=== PATIENT | female | born 1985 | race Hispanic/Latino ===

== ENCOUNTER 2024-06-17 20:27 | Inpatient (IN) | payer SELFPAY ==
[~2024-06-17] VITALS: Ht 167.6 cm; Wt 89.4 kg
[2024-06-17 20:53] LABS: BASOPHILS # (AUTO) 0.04 K/uL (0.00-0.20); BASOPHILS % (AUTO) 0.3 % (0.0-5.0); EOSINOPHILS # (AUTO) 0.02 K/uL (0.00-0.70); EOSINOPHILS % (AUTO) 0.1 % (0.0-8.0); HEMATOCRIT 24.1 % (36-48); IMMATURE GRANULOCYTE ABSOLUTE 0.57 K/uL (0-1); LYMPHOCYTES # (AUTO) 1.9 K/uL (1.0-4.8); LYMPHOCYTES % (AUTO) 13.2 % (21.0-51.0); MEAN CORPUSCULAR HEMOGLOBIN 30.2 pg (27.0-33.0); MEAN CORPUSCULAR HGB CONC 33.2 g/dL (32.0-36.0); MEAN CORPUSCULAR VOLUME 90.9 fL (79-99); MONOCYTES # (AUTO) 0.8 K/uL (0.1-1.0); MONOCYTES % (AUTO) 5.4 % (3.0-13.0); NEUTROPHILS # (AUTO) 11.3 K/uL (1.8-7.7); NEUTROPHILS % (AUTO) 77.1 % (40.0-77.0); NUCLEATED RED BLOOD CELLS 0.6 % (0.0-0.19); PLATELET COUNT (AUTO) 343 K/uL (130-400); RED BLOOD CELL COUNT(AUTO) 2.65 MIL/uL (4.00-5.50); RED CELL DISTRIBUTION WIDTH 13.8 % (11.0-15.5); WHITE BLOOD COUNT (AUTO) 14.7 K/uL (4.8-10.8)
[2024-06-17 21:05] LABS: CREATININE 0.7 mg/dL (0.5-1.0); POTASSIUM 3.7 mmol/L (3.5-5.1)
[2024-06-17 21:09] LABS: ALBUMIN 2.5 g/dL (3.5-5.0); BILIRUBIN,TOTAL 0.6 mg/dL (0.2-1.0); TOTAL PROTEIN, SERUM 6.2 g/dL (6.0-8.3)
[2024-06-17] MEDS: 0.9%NACL 1000ML 1,000 ML IV ONE (21:12)
[2024-06-17] MEDS ORDERED: IOHEXOL-350 75 ML VIAL IV ONE (21:21)
--- NOTE | 2024-06-17 22:01 | HMCIMG ---
CT ABDOMEN/PELVIS W/CONTRAST HISTORY: Abdominal pain TECHNIQUE: CT ABDOMEN/PELVIS W/CONTRAST Omnipaque contrast was used. Oral contrast was not given. Coronal and sagittal reformats were obtained. CT was performed with one or more of the following dose reduction techniques: Automated exposure control, adjustment of the mA and/or kV according to the patient's size, or use of the iterative reconstruction technique. Comparison: None. FINDINGS: Mild atelectatic changes are seen in the lung bases. Liver and gallbladder are within normal limits. The spleen, pancreas, and adrenal glands are within normal limits. No hydronephrosis. The urinary bladder is partially distended. Reproductive organs are grossly within normal limits for patient's age. Prominent loops of small bowel and colon with air-fluid level which may may represent ileus, enterocolitis versus early obstruction. Correlate clinically. There is no CT evidence of acute appendicitis. Subcutaneous stranding and multiple foci of air seen in the abdominal/pelvic wall as well as flank which may may represent recent postoperative changes versus gas-forming infection. Correlate clinically. Visualized aorta is normal in caliber. No acute osseous findings. IMPRESSION: 1. Prominent loops of small bowel and colon with air-fluid level which may may represent ileus, enterocolitis, less likely early obstruction. Correlate clinically. There is no CT evidence of acute appendicitis. 2. Subcutaneous stranding and multiple foci of air seen in the abdominal/pelvic wall as well as flank which may may represent recent postoperative changes versus gas-forming infection. Correlate clinically.
[2024-06-17] MEDS: ondanSETRON 4MG INJ IVP ONE (22:30)
[2024-06-17] MEDS: morPHINE 2 MG SYG IVP ONE (22:41)
--- NOTE | 2024-06-18 00:51 | ERN ---
General Chief Complaint: Abdominal Pain Stated Complaint: C/O ABD PAIN W/ N X V; STATES HAD LIPO & TUMMY TU Time Seen by MD: 20:31 Time Seen by Midlevel: 20:31 Source: patient History of Present Illness Initial Comments 39-year-old female who presents to the ED due to abdominal pain. Patient reports nausea, vomiting, constipation but denies any fever or further associated symptoms. Patient reports she had a Liposuction and tummy tuck done three days ago by Dr. Gonsales. Patient reports last bowel movement was Saturday prior to the surgery. States she has not been able to eat or drink anything due to the nausea and vomiting. Patient has attempted to take the ibuprofen at home but unable to tolerated. Denies any significant past medical history. Allergies: Coded Allergies: No Known Allergies (Unverified Allergy, Unknown, 06/17/24) Past Medical History Past Medical History: No Pertinent History Past Surgical History: Other Surgical History Other: LIPO SUCTION AND TUMMY TUCK Female( History) LMP: Jun 03, 2024 ROS Dictation Constitutional: Negative for fever,chills, and weight loss Eyes: Negative for injury, pain,redness, and discharge ENT: Negative for injury,pain or swelling Cardiovascular: Negative for chest pain, palpitations, and edema Respiratory: Negative for shortness of breath, cough, and wheezing, Abdomen/GI: Positive for abdominal pain, nausea, vomiting, constipation Negative for diarrhea Back: Negative for injury and pain : Negative for painful urination, bleeding or discharge MS/Extremity: Negative for injury and deformity Skin: Negative for rash, and discoloration Neuro: Negative for headache, weakness, numbness, tingling, and seizure Psych: Negative for suicide ideation, homicidal ideation, and hallucinations Physical Exam Physical Exam Dictation General: awake, alert, no acute distress Head/Face: Normocephalic, atraumatic Eyes: normal conjunctiva ENT: oral mucosa moist Neck: Normal range of motion, supple Cardiovascular: RRR, normal S1/S2 Abdomen: Soft, generalized tenderness, non-distended, surgical incision shows no signs of infection Skin: Warm, dry, normal turgor, no rash MS/Extremity: Pulses equal, no cyanosis, neurovascular intact, FROM Neuro: COAx4, GCS 15, no neurological deficits Psych: Normal behavior, mood, and affect normal Results Laboratory and Microbiology Lab and Micro Result Labs Reviewed?: Yes EKG/XRAY/US/CT/MRI CT Scan Comment REASON: Abdominal pain ORDERING PHYSICIAN: HARDEEP ALSTON PROCEDURE: ABD PEL W - CT ABDOMEN/PELVIS W/CONTRAST CT ABDOMEN/PELVIS W/CONTRAST HISTORY: Abdominal pain TECHNIQUE: CT ABDOMEN/PELVIS W/CONTRAST Omnipaque contrast was used. Oral contrast was not given. Coronal and sagittal reformats were obtained. CT was performed with one or more of the following dose reduction techniques: Automated exposure control, adjustment of the mA and/or kV according to the patient's size, or use of the iterative reconstruction technique. Comparison: None. FINDINGS: Mild atelectatic changes are seen in the lung bases. Liver and gallbladder are within normal limits. The spleen, pancreas, and adrenal glands are within normal limits. No hydronephrosis. The urinary bladder is partially distended. Reproductive organs are grossly within normal limits for patient's age. Prominent loops of small bowel and colon with air-fluid level which may may represent ileus, enterocolitis versus early obstruction. Correlate clinically. There is no CT evidence of acute appendicitis. Subcutaneous stranding and multiple foci of air seen in the abdominal/pelvic wall as well as flank which may may represent recent postoperative changes versus gas-forming infection. Correlate clinically. Visualized aorta is normal in caliber. No acute osseous findings. IMPRESSION: 1. Prominent loops of small bowel and colon with air-fluid level which may may represent ileus, enterocolitis, less likely early obstruction. Correlate clinically. There is no CT evidence of acute appendicitis. 2. Subcutaneous stranding and multiple foci of air seen in the abdominal/pelvic wall as well as flank which may may represent recent postoperative changes versus gas-forming infection. Correlate clinically. MDM MDM: Differential diagnosis: Bowel obstruction, ileus, postoperative complication Rationale: 39-year-old female who presents to the ED due to abdominal pain. Patient reports nausea, vomiting, constipation but denies any fever or further associated symptoms. Patient reports she had a Liposuction and tummy tuck done three days ago by Dr. Gonsales. Patient reports last bowel movement was Saturday prior to the surgery. States she has not been able to eat or drink anything due to the nausea and vomiting. Patient has attempted to take the ibuprofen at home but unable to tolerated. Denies any significant past medical history. Labs obtained indicate dehydration, WBC elevation at 14.7, and anemia with hemoglobin of 8. CT abdomen and pelvis obtained indicates prominent small bowel loops and colon air-fluid filled ileus versus early obstruction. Patient was administered Zofran, and IV fluids. Case discussed at 10:46 p.m. with general surgeon Dr. Bell who recommended patient to be transferred to hospital where surgery was performed. At 11:43 p.m. case was discussed with Dr. Gonsales who performed the surgery who stated he would discuss case with general surgeon Dr. Bell due to surgery being performed at an outpatient facility. During discussi on with Dr. Gonsales he stated patient has a history of gastritis and was previously taking omeprazole prior to the surgery. Dr. Rascon stated to admit patient and he would evaluate. Case discussed with BRAND LEAD Alyssia who accepted admission. Previous outside records reviewed: Old ER visits. Risk of complication and/or morbidity or mortality of patient management: None Medications-Per medication reconciliation Need for hospitalization: Patient does meet criteria for hospitalization. Need for emergency major/minor surgery: No There are no social concerns with this patient. Prescription drug management Prescriptions will include symptomatic care Patient's prior external medical records from other ER visits were reviewed by me as indicated. Prior testing and results from previous visits were reviewed. Prior tests were taken into account with medical decision making and resource utilization, independent historian/historians were used to obtain complete medical history. I independently interpreted the test that were performed, results were reviewed by me and considered findings on radiology if ordered. Medical management and examination interpretation discussions were had by me with other qualified healthcare professionals as indicated for the patient's c are. ED Course Critical Care Note Critical Time: 30 minutes Comments Critical Care Procedure Note Authorized and Performed by: me Total critical care time: Approximately 36 minutes Due to a high probability of clinically significant, life threatening deterioration, the patient required my highest level of preparedness to intervene emergently and I personally spent this critical care time directly and personally managing the patient. This critical care time included obtaining a history; examining the patient; pulse oximetry; ordering and review of studies; arranging urgent treatment with development of a management plan; evaluation of patient's response to treatment; frequent reassessment; and, discussions with other providers. This critical care time was performed to assess and manage the high probability of imminent, life-threatening deterioration that could result in multi-organ failure. It was exclusive of separately billable procedures and treating other patients and teaching time. Please see MDM section and the rest of the note for further information on patient assessment and treatment. DX & DISP Disposition: Inpatient Departure Impression: Primary Impression: Dehydration Additional Impressions: Hyperemesis, Ileus, postoperative, Anemia Condition: Stable Referrals: SELF,REFERRAL (PCP) I participated in the following activities of this patient's care: For this patient encounter, I reviewed the PA or [facility] documentation, treatment plan, and medical decision making. I did not have [id number] time with this patient. I will sign as the reviewing Dr. And agree with the treatment plan and disposition. HARDEEP ALSTON Jun 18, 2024 00:51
[2024-06-18 00:54] LABS: HCG,QUALITATIVE URINE NEGATIVE (NEGATIVE)
[2024-06-18 01:08] LABS: APPEARANCE,URINE CLEAR (CLEAR); BILIRUBIN,URINE NEGATIVE (NEGATIVE); COLOR,URINE LIGHT-YELLOW (YELLOW); GLUCOSE, URINE (UA) NEGATIVE (NEGATIVE); KETONES,URINE >=80 mg/dL (NEGATIVE); LEUKOCYTE ESTERASE ,URINE NEGATIVE Leu/uL (NEGATIVE); NITRATE,URINE NEGATIVE (NEGATIVE); OCCULT BLOOD,URINE NEGATIVE (NEGATIVE); PROTEIN,URINE NEGATIVE (NEGATIVE); UROBILINOGEN,URINE 0.2 mg/dL (0.2-1.0)
[2024-06-18 01:09] LABS: ADD UA MICROSCOPIC YES
[2024-06-18 01:10] LABS: BACTERIA,URINE RARE /HPF (None Seen); MUCUS,URINE RARE LPF (None Seen); SQUAMOUS EPITHELIAL CELL,UR MOD /HPF (0-2)
--- NOTE | 2024-06-18 01:51 | HP ---
[facility] HISTORY AND PHYSICAL Date of Service: Jun 18, 2024 Time of Service: 01:51 PCP self-referral HISTORY OF PRESENT ILLNESS: This is a 39-year-old female with no pertinent medical history with surgical history of liposuction and tummy tuck who presents to the ED for complaints of abdominal pain, nausea and vomiting. Patient states he had a liposuction and tummy tuck done three days ago by Dr. Gonsales and he was discharged home last Saturday and was on ibuprofen and Tylenol for pain but according to patient she can not tolerate anything po . Patient states for the past three days she has not been able to eat because of the persistent nausea and vomiting. Patient states however she kept on burping a lot. Patient states she has no bowel movement for the past five days. Seen and examined patient in the ER awake alert and coherent appears uncomfortable need to complain of abdominal pain 8/10 pain level. Patient complained of chills, denies chest pain, palpitation, shortness for breath, diarrhea. Latest vital signs temperature 98.8, heart rate 106, blood pressure 118/69, saturation 98% on room air. Labs: WBC 14.7 with negative left shift of neutrophils 77, hemoglobin 8, hematocrit 24, platelet count 343. Sodium 135, potassium 3.7, chloride 99 glucose 155, total calcium 8.4, AST 38 ALT 30 alkaline phosphatase 53 albumin 2.5 lipase 24 serum negative. Urinalysis is remarkable with RBC and WBC. CT abdomen and pelvis with contrast result revealed prominent loops of small bowel and colon with air-fluid level which may represent ileus, enterocolitis, less likely early obstruction. Correlate clinically. There is no CT evidence of acute appendicitis. Subcutaneous stranding and multiple foci of air seen in the abdominal/pelvic wall as well as flank which may represent recent postoperative changes versus gas-forming infection. While in the ER patient received Dulcolax 10 mg suppository, morphine 2 mg IV, Zofran 4 mg IV 1 L NS bolus. As per ER PA case was discussed to both Dr. Gonsales and Dr. Rascon and Dr. Rascon as per report agreed to evaluate the patient. We will admit patient for further medical management. REVIEW OF SYSTEMS CONSTITUTIONAL: Complain of chills Denies fevers or night sweats. No unintentional weight loss reported. NEUROLOGICAL: Denies headache, amaurosis fugax, motor weakness, sensory deficit, vertigo/spinning sensation, gait abnormalities, or tremors. ENT: No hearing loss, otalgia, otorrhea, rhinitis, rhinorrhea, hoarseness, or sore throat. CARDIOVASCULAR: Denies any exertional angina, dyspnea on exertion, orthopnea, paroxysmal nocturnal dyspnea, palpitations, life-threatening arrhythmias, claudication. PULMONARY: Denies any shortness of breath, cough, phlegm/sputum, hemoptysis, pleuritic chest pain. SLEEP: Denies morning headaches, daytime somnolence or napping. Denies difficulty falling asleep, staying asleep, waking from sleep. Denies knowledge of snoring. GASTROINTESTINAL: Complained of abdominal pain associated with constipation, nausea and vomiting times 13 Denies any type of dysphagia to either liquids or solids. Denies pyrosis, early satiety, , diarrhea or changes in stool consistency or caliber. Denies coffee-ground emesis, hematemesis, hematochezia, or melanotic stools. GENITOURINARY: Denies frequency, urgency, nocturia, hematuria or incontinence (Storage/Irritative symptoms.) Low urinary stream, straining to void, urinary intermittency or hesitancy, splitting of the voiding stream, terminal dribbling. ENDOCRINOLOGIC: Denies polyuria, polydipsia, polyphagia or heat/cold intol erances. HEMATOLOGIC: Denies thrombophilia/previous clots, or coagulopathy/bleeding disorders. ONCOLOGIC: Denies personal history of malignancy. DERMATOLOGIC: Denies rashes or pruritus. PSYCHIATRIC: Denies any suicidal or homicidal ideation. Denies hallucinations. PAST MEDICAL HISTORY: [ No pertinent medical history ] PAST SURGICAL HISTORY: [Tummy tuck and liposuction ] PAST SOCIAL HISTORY: [ Patient lives with Murtaza Beaulieu. Patient denies alcohol tobacco and recreational drug use] FAMILY HISTORY: [ Hypertension, diabetes and cardiovascular disease] Coded Allergies: No Known Allergies (Unverified Allergy, Unknown, 06/17/24) PHYSICAL EXAM GENERAL APPEARANCE: The patient is awake, alert, and oriented, in no acute cardiopulmonary distress. NEUROLOGICAL: Cranial nerves II-XII grossly intact. Motor is 5/5 in bilateral upper and lower extremities proximal to distal. No sensory deficits. HEENT: Face is symmetric. Pupils are equal and reactive. Extraocular movements are intact. NECK: Supple. No JVD. No thyromegaly. No submental, submandibular, pre- /postauricular, occipital or supraclavicular lymphadenopathy. CHEST: Normal chest expansion. No Telemetry. LUNGS: Absence of any rales, rhonchi or any wheezing. CARDIOVASCULAR: Regular. S1 and S2 normal. No appreciable rubs, murmurs or gallops. ABDOMEN: Abdominal tenderness around mid abdomen . There is no rebound, voluntary guarding, or rigidity. : Deferred. No Emanuel. EXTREMITIES: Non-edematous and not cyanotic. No clubbing. Good capillary refi ll. SKIN: No skin breakdown. Vital Sign (Last 24 Hours) 06/17/24 23:30 Temp 98.8 Pulse 110 Resp 18 B/P (MAP) 128/78 Pulse Ox 98 O2 Delivery Room Air* O2 Flow Rate 0 FiO2 21 LABS: Laboratory: Test 06/18/24 00:44 06/17/24 20:46 Range/Units Urine Color LIGHT-YELLOW YELLOW Urine Appearance CLEAR CLEAR Urine pH 6.0 5.0-8.0 Urine Specific [place] 1.030 1.001-1.031 Urine Protein NEGATIVE NEGATIVE mg/dL Urine Glucose (UA) NEGATIVE NEGATIVE mg/dL Urine Ketones >=80 NEGATIVE mg/dL Urine Occult Blood NEGATIVE NEGATIVE Urine Nitrate NEGATIVE NEGATIVE Urine Bilirubin NEGATIVE NEGATIVE mg/dL Urine Urobilinogen 0.2 0.2-1.0 mg/dL Urine Leukocyte Esterase NEGATIVE NEGATIVE Renae/uL Urine RBC 11-25 H 0-1 /HPF Urine WBC 2-5 H 0-1 /HPF Urine Squamous Epithelial Cells MOD 0-2 /HPF Urine Bacteria RARE None Seen /HPF Urine HCG, Qualitative NEGATIVE NEGATIVE White Blood Count 14.7 H 4.8-10.8 K/uL Red Blood Count 2.65 L 4.00-5.50 MIL/uL Hemoglobin 8.0 L 12.0-16.0 g/dL Hematocrit 24.1 L 36-48 % Mean Corpuscular Volume 90.9 79-99 fL Mean Corpuscular Hemoglobin 30.2 27.0-33.0 pg Mean Corpuscular Hemoglobin Concent 33.2 32.0-36.0 g/dL Red Cell Distribution Width 13.8 11.0-15.5 % Platelet Count 343 130-400 K/uL Mean Platelet Volume 9.7 7.5-10.5 fL Immature Granulocyte % (Auto) 3.9 H 0-1 % Neutrophils (%) (Auto) 77.1 H 40.0-77.0 % Lymphocytes (%) (Auto) 13.2 L 21.0-51.0 % Monocytes (%) (Auto) 5.4 3.0-13.0 % Eosinophils (%) (Auto) 0.1 0.0-8.0 % Basophils (%) (Auto) 0.3 0.0-5.0 % Neutrophils # (Auto) 11.3 H 1.8-7.7 K/uL Lymphocytes # (Auto) 1.9 1.0-4.8 K/uL Monocytes # (Auto) 0.8 0.1-1.0 K/uL Eosinophils # (Auto) 0.02 0.00-0.70 K/uL Basophils # (Auto) 0.04 0.00-0.20 K/uL Absolute Immature Granulocyte (auto 0.57 0-1 K/uL Nucleated Red Blood Cells 0.6 H 0.0-0.19 % Sodium Level 135 L 136-145 mmol/L Potassium Level 3.7 3.5-5.1 mmol/L Chloride Level 99 L 101-111 mmol/L Carbon Dioxide Level 28 21-32 mmol/L Blood Urea Nitrogen 12 7-18 mg/dL Creatinine 0.7 0.5-1.0 mg/dL Glomerular Filtration Rate Calc 113 >90 mL/min Random Glucose 155 H 70-105 mg/dL Total Calcium 8.4 L 8.5-10.1 mg/dL Total Bilirubin 0.6 0.2-1.0 mg/dL Aspartate Amino Transf (AST/SGOT) 38 H 10-37 U/L Alanine Aminotransferase (ALT/SGPT) 30 12-78 U/L Alkaline Phosphatase 53 50-136 U/L Total Protein 6.2 6.0-8.3 g/dL Albumin 2.5 L 3.5-5.0 g/dL Lipase 24 16-77 U/L Serum Test, Qualitative NEGATIVE NEGATIVE DIAGNOSTICS / RADIOLOGY: [ ] ASSESSMENT: Postoperative ileus POA Sirs with organ dysfunction POA Dehydration POA Acute anemia POA Hyperglycemia POA Protein calorie malnutrition POA Obesity POA PLAN: We will admit patient in medical surgical floor We will keep patient nothing by mouth We will start NS @ 100 ml / hr and re evaluate We will start patient on cefepime 1 g IV Q 8 hours We will start on Famotidine 20 mg IV bid for GI prophylaxis We will replace electrolytes as needed per protocol We will add prn medication for fever,pain,nausea and vomiting We will reconcile home meds once medlist available We will seek general surgery consultation We will consult wound eval and management We will obtain fecal occult blood H&H p.r.n. bleeding We will transfuse PRBC to keep hemoglobin above seven We will request labs in am Further orders to follow depending on above results Case discussed with attending physician and came up with above treatment and plan of care. ADVANCED CARE PLANNING 1. Which of the following were discussed? Hospice Care - No Therapeutic options - Yes Advance Directives - No Other discussions - 2. Discussed with who? Patient 3. Voluntary nature of this service was explained to the patient? Yes 4. Amount of time spent - ___19____ 5. Reviewed by Physician? (if this service was performed by NPP) Yes Patient seen and examined by me. Agree with note by MEDICAL OFFICE MANAGER SEE ADDITIONAL ORDERS PER CHART DISCUSSED WITH NURSING STAFF CHRIS FOLEYP Jun 18, 2024 01:51
[2024-06-18] MEDS ORDERED: FAMOTIDINE 20MG VIAL IV PRN (02:00)
[2024-06-18] MEDS ORDERED: acetaMINOPHEN 325 MG TAB PO PRN ×2 (02:00)
[2024-06-18] MEDS: ceFEPime HCL 1 GM VIAL IVPB SCH (02:53)
[2024-06-18] MEDS: 0.9%NACL 1000ML 1,000 ML IV SCH (02:54)
[2024-06-18] MEDS: BisaCODYL 10 MG SUPP.RECT RC ONE (02:54)
[2024-06-18 03:25] VITALS: O2SAT 98
[2024-06-18 04:00] VITALS: BP 137/72; PULSE 108; RESP 18; TEMP 98.7
[2024-06-18 04:42] LABS: BASOPHILS # (AUTO) 0.03 K/uL (0.00-0.20); BASOPHILS % (AUTO) 0.2 % (0.0-5.0); EOSINOPHILS # (AUTO) 0.03 K/uL (0.00-0.70); EOSINOPHILS % (AUTO) 0.2 % (0.0-8.0); IMMATURE GRANULOCYTE ABSOLUTE 0.68 K/uL (0-1); LYMPHOCYTES % (AUTO) 15.3 % (21.0-51.0); MEAN CORPUSCULAR HGB CONC 33.2 g/dL (32.0-36.0); MEAN CORPUSCULAR VOLUME 90.5 fL (79-99); MONOCYTES # (AUTO) 0.8 K/uL (0.1-1.0); MONOCYTES % (AUTO) 6.3 % (3.0-13.0); NEUTROPHILS # (AUTO) 9.6 K/uL (1.8-7.7); NEUTROPHILS % (AUTO) 72.8 % (40.0-77.0); NUCLEATED RED BLOOD CELLS 0.8 % (0.0-0.19); PLATELET COUNT (AUTO) 308 K/uL (130-400); RED BLOOD CELL COUNT(AUTO) 2.43 MIL/uL (4.00-5.50); RED CELL DISTRIBUTION WIDTH 13.9 % (11.0-15.5); WHITE BLOOD COUNT (AUTO) 13.2 K/uL (4.8-10.8)
[2024-06-18] MEDS: morPHINE 2 MG SYG IVP ONE (04:43)
[2024-06-18 04:56] LABS: INR 1.02 (0.85-1.15)
[2024-06-18 04:57] LABS: PARTIAL THROMBOPLASTIN TIME 25.9 SEC (26.3-35.5)
[2024-06-18 05:17] LABS: ALBUMIN 2.4 g/dL (3.5-5.0); BILIRUBIN,TOTAL 0.6 mg/dL (0.2-1.0); CREATININE 0.7 mg/dL (0.5-1.0); MAGNESIUM 1.9 mg/dL (1.80-2.40); POTASSIUM 3.4 mmol/L (3.5-5.1); TOTAL PROTEIN, SERUM 5.9 g/dL (6.0-8.3)
[2024-06-18 08:00] VITALS: BP 126/69; PULSE 102; RESP 20; TEMP 98.6; O2SAT 99
[2024-06-18] MEDS: ondanSETRON 4MG INJ IV PRN ×2 (08:20→11:16)
[2024-06-18] MEDS: FAMOTIDINE 20MG VIAL IV SCH (08:20)
[2024-06-18] MEDS ORDERED: MAGNESIUM 2GM PREMIX 50ML 50 ML IV PRN (08:30)
[2024-06-18] MEDS ORDERED: PoTASSium chloRIDE 20MEQ/100ML 100 ML IV PRN (08:30)
[2024-06-18 08:47] LABS: CREATININE 0.7 mg/dL (0.5-1.0); POTASSIUM 3.6 mmol/L (3.5-5.1)
[2024-06-18 08:54] LABS: ALBUMIN 2.3 g/dL (3.5-5.0); BILIRUBIN,TOTAL 0.5 mg/dL (0.2-1.0); TOTAL PROTEIN, SERUM 5.6 g/dL (6.0-8.3)
[2024-06-18] MEDS ORDERED: VANCOMYCIN 500MG+NS 100ML IVPB IV SCH (09:00)
--- NOTE | 2024-06-18 10:36 | CONS ---
CONSULT NOTE: Consulting physician: Dr. Ching Consulting service: General surgery Reason for consultation: Postoperative ileus from cosmetic surgery History of present illness: This 31-year-old female with a medical history concerning for a recent mommy make over with liposuction performed this Saturday in [place] has been consulted to surgery for concerns of postoperative ileus. Patient reports that for the past three days she has been unable to keep any meals down. Any meals taken resulting in nausea and vomiting. Patient reports no bowel movement over the last few days. Due to concerns patient was advised to present to hospital for further evaluation by performing surgeon. White count slightly elevated with a hemoglobin slightly trending down with 7.3. Patient's electrolytes unremarkable. Patient currently IV fluids and IV antibiotics. Initial imaging concerning for ileus versus enteritis. Patient with multiple bowel movements reported. Patient reporting cramping like sensation. Incisions clean and dry with ROHINI drain in place at this time. No signs of infection surgical incisions. Medical history: None Surgical history: Recent mommy make over Vital Signs Date Time Temp Pulse Resp B/P (MAP) Pulse Ox O2 Delivery O2 Flow Rate FiO2 06/18/24 08:00 98.6 102 20 126/69 99 Room Air 21 06/18/24 03:25 0 Review of systems: General: No Fever, No Chills, No Night Sweats, No Fatigue, No Malaise, No Appetite, No Other HEENT: No Head Aches, No Visual Changes, No Eye Pain, No Ear Pain, No Dysphasia, No Sinus Congestion, No Post Nasal Drip, No Sore Throat, No Other Pulmonary: No Dyspnea, No Cough, No Pleuritic Chest Pain, No Other Cardiovascular: No: Chest Pain, Palpitations, Orthopnea, Paroxysmal No Dyspnea, Edema, Lt Headedness, Other Gastrointestinal: No: Nausea, Vomiting, Diarrhea, Constipation, Melena, Hematochezia, Other Genitourinary: No Dysuria, No Frequency, No Incontinence, No Hematuria, No Retention, No Other Musculoskeletal: No: other, neck pain, shoulder pain, arm pain, back pain, hand pain, leg pain, foot pain Skin: No Urticaria, No Rash, No Other Neurological: No: Weakness, Numbness, Incoordination, Change in speech, Confusion, Seizures, Other Physical exam: General: Awake alert and oriented Heart: Regular rate and rhythm} Lungs: [Clear to auscultation no distress Abdomen: Incisions clean and dry with no erythema noted. ROHINI is in place IMPRESSION: 1. Prominent loops of small bowel and colon with air-fluid level which may may represent ileus, enterocolitis, less likely early obstruction. Correlate clinically. There is no CT evidence of acute appendicitis. 2. Subcutaneous stranding and multiple foci of air seen in the abdominal/pelvic wall as well as flank which may may represent recent postoperative changes versus gas-forming infection. Correlate clinically. Laboratory Tests Test 06/17/24 20:46 06/18/24 00:44 06/18/24 04:38 06/18/24 05:55 White Blood Count 14.7 K/uL (4.8-10.8) H 13.2 K/uL (4.8-10.8) H Red Blood Count 2.65 MIL/uL (4.00-5.50) L 2.43 MIL/uL (4.00-5.50) L Hemoglobin 8.0 g/dL (12.0-16.0) L 7.3 g/dL (12.0-16.0) L Hematocrit 24.1 % (36-48) L 22.0 % (36-48) L Mean Corpuscular Volume 90.9 fL (79-99) 90.5 fL (79-99) Mean Corpuscular Hemoglobin 30.2 pg (27.0-33.0) 30.0 pg (27.0-33.0) Mean Corpuscular Hemoglobin Concent 33.2 g/dL (32.0-36.0) 33.2 g/dL (32.0-36.0) Red Cell Distribution Width 13.8 % (11.0-15.5) 13.9 % (11.0-15.5) Platelet Count 343 K/uL (130-400) 308 K/uL (130-400) Mean Platelet Volume 9.7 fL (7.5-10.5) 9.3 fL (7.5-10.5) Immature Granulocyte % (Auto) 3.9 % (0-1) H 5.2 % (0-1) H Neutrophils (%) (Auto) 77.1 % (40.0-77.0) H 72.8 % (40.0-77.0) Lymphocytes (%) (Auto) 13.2 % (21.0-51.0) L 15.3 % (21.0-51.0) L Monocytes (%) (Auto) 5.4 % (3.0-13.0) 6.3 % (3.0-13.0) Eosinophils (%) (Auto) 0.1 % (0.0-8.0) 0.2 % (0.0-8.0) Basophils (%) (Auto) 0.3 % (0.0-5.0) 0.2 % (0.0-5.0) Neutrophils # (Auto) 11.3 K/uL (1.8-7.7) H 9.6 K/uL (1.8-7.7) H Lymphocytes # (Auto) 1.9 K/uL (1.0-4.8) 2.0 K/uL (1.0-4.8) Monocytes # (Auto) 0.8 K/uL (0.1-1.0) 0.8 K/uL (0.1-1.0) Eosinophils # (Auto) 0.02 K/uL (0.00-0.70) 0.03 K/uL (0.00-0.70) Basophils # (Auto) 0.04 K/uL (0.00-0.20) 0.03 K/uL (0.00-0.20) Absolute Immature Granulocyte (auto 0.57 K/uL (0-1) 0.68 K/uL (0-1) Nucleated Red Blood Cells 0.6 % (0.0-0.19) H 0.8 % (0.0-0.19) H Sodium Level 135 mmol/L (136-145) L 137 mmol/L (136-145) Potassium Level 3.7 mmol/L (3.5-5.1) 3.4 mmol/L (3.5-5.1) L Chloride Level 99 mmol/L (101-111) L 102 mmol/L (101-111) Carbon Dioxide Level 28 mmol/L (21-32) 24 mmol/L (21-32) Blood Urea Nitrogen 12 mg/dL (7-18) 12 mg/dL (7-18) Creatinine 0.7 mg/dL (0.5-1.0) 0.7 mg/dL (0.5-1.0) Glomerular Filtration Rate Calc 113 mL/min (>90) 113 mL/min (>90) Random Glucose 155 mg/dL (70-105) H 155 mg/dL (70-105) H Total Calcium 8.4 mg/dL (8.5-10.1) L 8.2 mg/dL (8.5-10.1) L Total Bilirubin 0.6 mg/dL (0.2-1.0) 0.6 mg/dL (0.2-1.0) Aspartate Amino Transf (AST/SGOT) 38 U/L (10-37) H 33 U/L (10-37) Alanine Aminotransferase (ALT/SGPT) 30 U/L (12-78) 28 U/L (12-78) Alkaline Phosphatase 53 U/L (50-136) 50 U/L (50-136) Total Protein 6.2 g/dL (6.0-8.3) 5.9 g/dL (6.0-8.3) L Albumin 2.5 g/dL (3.5-5.0) L 2.4 g/dL (3.5-5.0) L Lipase 24 U/L (16-77) Serum Test, Qualitative NEGATIVE (NEGATIVE) Urine Color LIGHT-YELLOW (YELLOW) Urine Appearance CLEAR (CLEAR) Urine pH 6.0 (5.0-8.0) Urine Specific [place] 1.030 (1.001-1.031) Urine Protein NEGATIVE mg/dL (NEGATIVE) Urine Glucose (UA) NEGATIVE mg/dL (NEGATIVE) Urine Ketones >=80 mg/dL (NEGATIVE) Urine Occult Blood NEGATIVE (NEGATIVE) Urine Nitrate NEGATIVE (NEGATIVE) Urine Bilirubin NEGATIVE mg/dL (NEGATIVE) Urine Urobilinogen 0.2 mg/dL (0.2-1.0) Urine Leukocyte Esterase NEGATIVE Renae/uL Urine RBC 11-25 /HPF (0-1) H Urine WBC 2-5 /HPF (0-1) H Urine Squamous Epithelial Cells MOD /HPF (0-2) Urine Bacteria RARE /HPF (None Seen) Urine HCG, Qualitative NEGATIVE (NEGATIVE) Prothrombin Time 11.0 SEC (9.6-11.6) Prothromb Time International Ratio 1.02 (0.85-1.15) Activated Partial Thromboplast Time 25.9 SEC (26.3-35.5) L Lactic Acid Level 1.8 mmol/L (0.8-2.5) Magnesium Level 1.90 mg/dL (1.80-2.40) Procalcitonin 0.09 ng/mL (0.05-0.5) Stool Occult Blood NEGATIVE (NEGATIVE) Test 06/18/24 08:28 Sodium Level 138 mmol/L (136-145) Potassium Level 3.6 mmol/L (3.5-5.1) Chloride Level 103 mmol/L (101-111) Carbon Dioxide Level 27 mmol/L (21-32) Blood Urea Nitrogen 12 mg/dL (7-18) Creatinine 0.7 mg/dL (0.5-1.0) Glomerular Filtration Rate Calc 113 mL/min (>90) Random Glucose 134 mg/dL (70-105) H Total Calcium 7.9 mg/dL (8.5-10.1) L Total Bilirubin 0.5 mg/dL (0.2-1.0) Aspartate Amino Transf (AST/SGOT) 30 U/L (10-37) Alanine Aminotransferase (ALT/SGPT) 27 U/L (12-78) Alkaline Phosphatase 47 U/L (50-136) L Total Protein 5.6 g/dL (6.0-8.3) L Albumin 2.3 g/dL (3.5-5.0) L Assessment: This is a 39-year-old female status post mommy make over with concerns of postoperative ileus versus enteritis Plan: Patient to remain NPO for now Recommend abdominal binder Encourage ambulation Patient to continue with the IV fluids and IV antibiotics Conservative management for now Dr. Bell to be updated in patient's status and surgical team will follow patient closely Nursing report any further acute events LUNA JESUS Jr. Jun 18, 2024 10:36
[2024-06-18] MEDS: VANCOMYCIN 500MG+NS 100ML IVPB IV SCH (11:04)
[2024-06-18] MEDS: SCOPOLAMINE HYDROBROMIDE 1 EACH ADH..PATCH TD SCH (11:05)
[2024-06-18 11:46] VITALS: BP 134/79; PULSE 102; RESP 16; TEMP 98.6
--- NOTE | 2024-06-18 12:15 | PN ---
INFECTIOUS DISEASE PROGRESS NOTE Date of Service: Jun 18, 2024 SUBJECTIVE: This is a 39-year-old female patient with recent history of a liposuction and tummy tuck presented to the ED with chief complaints of abdominal pain, nausea, vomiting and unable to pass gas. Patient denied experiencing fever at home the she did reported having chills. Day of admission patient had a low-grade fever 99.7 and the WBC was 14.7. Today on examination the tummy tuck incision looks clean and dry. Two ROHINI drain intact. No fever reported this morning, temperature is 98.6 in the WBC is 13.2 with a low hemoglobin of 7.3. Patient has been started on cefepime and vancomycin and we will continue at this time. We will continue to follow patient's care. REVIEW OF SYSTEMS CONSTITUTIONAL: Reported low-grade fever and chills. HEAD/FACE: No signs of trauma. EENT: Denies eye pain, blurred vision, double vision, or light sensitivity. RESPIRATORY: Denies shortness of breath, cough, wheezing CARDIOVASCULAR: Denies chest pain, palpitation, syncope GASTROINTESTINAL/ABDOMINAL: Not passing gas. GENITOURINARY: Denies dysuria or hematuria. MUSCULOSKELETAL: Denies joint pain, tenderness, or trauma. INTEGUMENTARY: Denies rash or itchiness NEUROLOGICAL/PSYCH: Denies anxiety, depression, heat or cold intolerance. PHYSICAL EXAM EYES: Anicteric. Pupils equal and reactive. HENT: No oral thrush seen, moist Oral mucosa NECK: Supple, no JVD or thyromegaly. LUNGS: Good air entry. No rales, no rhonchi. CARDIOVASCULAR: S1, S2 regular. No murmur heard. ABDOMEN: Soft, non tender, bowel sounds present, no organomegaly. Tummy tuck incision with two ROHINI drains. CENTRAL NERVOUS SYSTEM: Awake, alert, oriented x 3. No focal deficits. SKIN: No rashes, no swelling. LYMPHATICS: No peripheral lymphadenopathy. MUSCULOSKELETAL: No joint swelling, erythema or tenderness. EXTREMITIES: No cyanosis or clubbing BACK: No deformity, no pressure ulcer. GENITOURINARY: No dysuria or hematuria. Vital Sign (Last 12 Hours) 06/18/24 06/18/24 06/18/24 06/18/24 02:02 03:06 03:25 04:00 Temp 98.8 98.8 Pulse 110 106 108 Resp 18 20 18 B/P (MAP) 120/79 118/69 137/72 Pulse Ox 98 98 98 98 O2 Delivery Room Air* Room Air* Room Air* Room Air O2 Flow Rate 0 0 0 FiO2 21 21 21 06/18/24 06/18/24 08:00 11:46 Temp 98.6 98.6 Pulse 102 102 Resp 20 16 B/P (MAP) 126/69 134/79 Pulse Ox 99 100 O2 Delivery Room Air Room Air FiO2 21 21 Intake & Output (last 24hrs) 06/17/24 06/17/24 06/18/24 14:59 22:59 06:59 Intake Total 160.0 ml Output Total 55 ml Balance 105.0 ml LABS: Laboratory: Test 06/18/24 08:28 06/18/24 05:55 06/18/24 04:38 06/18/24 00:44 Range/Units Sodium Level 138 136-145 mmol/L Potassium Level 3.6 3.5-5.1 mmol/L Chloride Level 103 101-111 mmol/L Carbon Dioxide Level 27 21-32 mmol/L Blood Urea Nitrogen 12 7-18 mg/dL Creatinine 0.7 0.5-1.0 mg/dL Glomerular Filtration Rate Calc 113 >90 mL/min Random Glucose 134 H 70-105 mg/dL Total Calcium 7.9 L 8.5-10.1 mg/dL Total Bilirubin 0.5 0.2-1.0 mg/dL Aspartate Amino Transf (AST/SGOT) 30 10-37 U/L Alanine Aminotransferase (ALT/SGPT) 27 12-78 U/L Alkaline Phosphatase 47 L 50-136 U/L Total Protein 5.6 L 6.0-8.3 g/dL Albumin 2.3 L 3.5-5.0 g/dL Stool Occult Blood NEGATIVE NEGATIVE White Blood Count 13.2 H 4.8-10.8 K/uL Red Blood Count 2.43 L 4.00-5.50 MIL/uL Hemoglobin 7.3 L 12.0-16.0 g/dL Hematocrit 22.0 L 36-48 % Mean Corpuscular Volume 90.5 79-99 fL Mean Corpuscular Hemoglobin 30.0 27.0-33.0 pg Mean Corpuscular Hemoglobin Concent 33.2 32.0-36.0 g/dL Red Cell Distribution Width 13.9 11.0-15.5 % Platelet Count 308 130-400 K/uL Mean Platelet Volume 9.3 7.5-10.5 fL Immature Granulocyte % (Auto) 5.2 H 0-1 % Neutrophils (%) (Auto) 72.8 40.0-77.0 % Lymphocytes (%) (Auto) 15.3 L 21.0-51.0 % Monocytes (%) (Auto) 6.3 3.0-13.0 % Eosinophils (%) (Auto) 0.2 0.0-8.0 % Basophils (%) (Auto) 0.2 0.0-5.0 % Neutrophils # (Auto) 9.6 H 1.8-7.7 K/uL Lymphocytes # (Auto) 2.0 1.0-4.8 K/uL Monocytes # (Auto) 0.8 0.1-1.0 K/uL Eosinophils # (Auto) 0.03 0.00-0.70 K/uL Basophils # (Auto) 0.03 0.00-0.20 K/uL Absolute Immature Granulocyte (auto 0.68 0-1 K/uL Nucleated Red Blood Cells 0.8 H 0.0-0.19 % Prothrombin Time 11.0 9.6-11.6 SEC Prothromb Time International Ratio 1.02 0.85-1.15 Activated Partial Thromboplast Time 25.9 L 26.3-35.5 SEC Lactic Acid Level 1.8 0.8-2.5 mmol/L Magnesium Level 1.90 1.80-2.40 mg/dL Procalcitonin 0.09 0.05-0.5 ng/mL Urine Color LIGHT-YELLOW YELLOW Urine Appearance CLEAR CLEAR Urine pH 6.0 5.0-8.0 Urine Specific [place] 1.030 1.001-1.031 Urine Protein NEGATIVE NEGATIVE mg/dL Urine Glucose (UA) NEGATIVE NEGATIVE mg/dL Urine Ketones >=80 NEGATIVE mg/dL Urine Occult Blood NEGATIVE NEGATIVE Urine Nitrate NEGATIVE NEGATIVE Urine Bilirubin NEGATIVE NEGATIVE mg/dL Urine Urobilinogen 0.2 0.2-1.0 mg/dL Urine Leukocyte Esterase NEGATIVE NEGATIVE Renae/uL Urine RBC 11-25 H 0-1 /HPF Urine WBC 2-5 H 0-1 /HPF Urine Squamous Epithelial Cells MOD 0-2 /HPF Urine Bacteria RARE None Seen /HPF Urine HCG, Qualitative NEGATIVE NEGATIVE Test 11/13/24 20:46 Range/Units Lipase 24 16-77 U/L Serum Test, Qualitative NEGATIVE NEGATIVE DIAGNOSTICS / RADIOLOGY: PATIENT: BETHEL JESUS MR#: [id number] : 1985 SEX: F AGE: 39 LOCATION: [facility] ORDER 34 STATUS: [facility] REPORT#: [id number] SERVICE 32 REASON: Abdominal pain ORDERING PHYSICIAN: HARDEEP ALSTON PROCEDURE: ABD PEL W - CT ABDOMEN/PELVIS W/CONTRAST CT ABDOMEN/PELVIS W/CONTRAST HISTORY: Abdominal pain TECHNIQUE: CT ABDOMEN/PELVIS W/CONTRAST Omnipaque contrast was used. Oral contrast was not given. Coronal and sagittal reformats were obtained. CT was performed with one or more of the following dose reduction techniques: Automated exposure control, adjustment of the mA and/or kV according to the patient's size, or use of the iterative reconstruction technique. Comparison: None. FINDINGS: Mild atelectatic changes are seen in the lung bases. Liver and gallbladder are within normal limits. The spleen, pancreas, and adrenal glands are within normal limits. No hydronephrosis. The urinary bladder is partially distended. Reproductive organs are grossly within normal limits for patient's age. Prominent loops of small bowel and colon with air-fluid level which may may represent ileus, enterocolitis versus early obstruction. Correlate clinically. There is no CT evidence of acute appendicitis. Subcutaneous stranding and multiple foci of air seen in the abdominal/pelvic wall as well as flank which may may represent recent postoperative changes versus gas-forming infection. Correlate clinically. Visualized aorta is normal in caliber. No acute osseous findings. IMPRESSION: 1. Prominent loops of small bowel and colon with air-fluid level which may may represent ileus, enterocolitis, less likely early obstruction. Correlate clinically. There is no CT evidence of acute appendicitis. 2. Subcutaneous stranding and multiple foci of air seen in the abdominal/pelvic wall as well as flank which may may represent recent postoperative changes versus gas-forming infection. Correlate clinically. DICTATED BY: JUAN ALBERTO MUKHERJEE MD DATE: 06/17/242155 ASSESSMENT: Abdominal pain. Sepsis. Leukocytosis. Nausea or vomiting. Dehydration. Recent liposuction and tummy tuck procedure. Concern for ileus versus enterocolitis. PLAN: Continue vancomycin per pharmacy protocol. Continue cefepime. Continue GI prophylaxis. Continue pain management. Continue incision care as recommended by the surgery team. Continue ROHINI care. Thank you for allowing ID to participate in the care of this patient. This case was reviewed and discussed with my supervising physician and the above assessment and plan was formulated and agreed upon. ATTESTATION BY PHYSICIAN I have seen and examined the patient. I reviewed the documentation, medical decision making, and treatment plan as noted by the mid-level provider above. I agree with the findings and plan of care. SILVESTRE WORKMAN MD, MIRTA L [facility] Jun 18, 2024 12:15
--- NOTE | 2024-06-18 12:57 | PN ---
[facility] PROGRESS NOTE Date of Service: Jun 18, 2024 Time of Service: 12:49 SUBJECTIVE: [ ] This is a 31-year-old female was admitted after midnight today. medical history recent mommy makeover with liposuction before this Saturday and Patel presents in ED with concerns on postoperative ileus. Patient has been unable to keep anything down for three days. Resulting in nausea and vomiting. Reports no bowel movements over the few days here in surgeon was consulted. Incision clean and dry with ROHINI drain in place at this time no sign of infection surgical incision. Surgeon's spoke to surgeon from [place] and has a follow-up appointment tomorrow. The plan is to discharge her tomorrow patient we will received IV fluids IV antibiotics at this time. As per surgeon we will start GI soft today and discharge tomorrow if no abdominal pain and nausea and vomiting REVIEW OF SYSTEMS CONSTITUTIONAL: Complain of chills Denies fevers or night sweats. No unintentional weight loss reported. NEUROLOGICAL: Denies headache, amaurosis fugax, motor weakness, sensory deficit, vertigo/spinning sensation, gait abnormalities, or tremors. ENT: No hearing loss, otalgia, otorrhea, rhinitis, rhinorrhea, hoarseness, or sore throat. CARDIOVASCULAR: Denies any exertional angina, dyspnea on exertion, orthopnea, paroxysmal nocturnal dyspnea, palpitations, life-threatening arrhythmias, claudication. PULMONARY: Denies any shortness of breath, cough, phlegm/sputum, hemoptysis, pleuritic chest pain. SLEEP: Denies morning headaches, daytime somnolence or napping. Denies difficulty falling asleep, staying asleep, waking from sleep. Denies knowledge of snoring. GASTROINTESTINAL: Complained of abdominal pain associated with constipation, na usea and vomiting times 13 Denies any type of dysphagia to either liquids or solids. Denies pyrosis, early satiety, , diarrhea or changes in stool consistency or caliber. Denies coffee-ground emesis, hematemesis, hematochezia, or melanotic stools. GENITOURINARY: Denies frequency, urgency, nocturia, hematuria or incontinence (Storage/Irritative symptoms.) Low urinary stream, straining to void, urinary intermittency or hesitancy, splitting of the voiding stream, terminal dribbling. ENDOCRINOLOGIC: Denies polyuria, polydipsia, polyphagia or heat/cold intolerances. HEMATOLOGIC: Denies thrombophilia/previous clots, or coagulopathy/bleeding disorders. ONCOLOGIC: Denies personal history of malignancy. DERMATOLOGIC: Denies rashes or pruritus. PSYCHIATRIC: Denies any suicidal or homicidal ideation. Denies hallucinations. PHYSICAL EXAM GENERAL APPEARANCE: The patient is awake, alert, and oriented, in no acute cardiopulmonary distress. NEUROLOGICAL: Cranial nerves II-XII grossly intact. Motor is 5/5 in bilateral upper and lower extremities proximal to distal. No sensory deficits. HEENT: Face is symmetric. Pupils are equal and reactive. Extraocular movements are intact. NECK: Supple. No JVD. No thyromegaly. No submental, submandibular, pre- /postauricular, occipital or supraclavicular lymphadenopathy. CHEST: Normal chest expansion. No Telemetry. LUNGS: Absence of any rales, rhonchi or any wheezing. CARDIOVASCULAR: Regular. S1 and S2 normal. No appreciable rubs, murmurs or gallops. ABDOMEN: Abdominal tenderness around mid abdomen . There is no rebound, voluntary guarding, or rigidity. : Deferred. No Emanuel. EXTREMITIES: Non-edematous and not cyanotic. No clubbing. Good capillary refill. SKIN: No skin breakdown. Vital Signs (last 8hr) Date Time Temp Pulse Resp B/P (MAP) Pulse Ox O2 Delivery O2 Flow Rate FiO2 06/18/24 11:46 98.6 102 16 134/79 100 Room Air 21 06/18/24 08:00 98.6 102 20 126/69 99 Room Air 21 LABS: Laboratory: Test 06/18/24 08:28 06/18/24 05:55 06/18/24 04:38 06/18/24 00:44 Range/Units Sodium Level 138 136-145 mmol/L Potassium Level 3.6 3.5-5.1 mmol/L Chloride Level 103 101-111 mmol/L Carbon Dioxide Level 27 21-32 mmol/L Blood Urea Nitrogen 12 7-18 mg/dL Creatinine 0.7 0.5-1.0 mg/dL Glomerular Filtration Rate Calc 113 >90 mL/min Random Glucose 134 H 70-105 mg/dL Total Calcium 7.9 L 8.5-10.1 mg/dL Total Bilirubin 0.5 0.2-1.0 mg/dL Aspartate Amino Transf (AST/SGOT) 30 10-37 U/L Alanine Aminotransferase (ALT/SGPT) 27 12-78 U/L Alkaline Phosphatase 47 L 50-136 U/L Total Protein 5.6 L 6.0-8.3 g/dL Albumin 2.3 L 3.5-5.0 g/dL Stool Occult Blood NEGATIVE NEGATIVE White Blood Count 13.2 H 4.8-10.8 K/uL Red Blood Count 2.43 L 4.00-5.50 MIL/uL Hemoglobin 7.3 L 12.0-16.0 g/dL Hematocrit 22.0 L 36-48 % Mean Corpuscular Volume 90.5 79-99 fL Mean Corpuscular Hemoglobin 30.0 27.0-33.0 pg Mean Corpuscular Hemoglobin Concent 33.2 32.0-36.0 g/dL Red Cell Distribution Width 13.9 11.0-15.5 % Platelet Count 308 130-400 K/uL Mean Platelet Volume 9.3 7.5-10.5 fL Immature Granulocyte % (Auto) 5.2 H 0-1 % Neutrophils (%) (Auto) 72.8 40.0-77.0 % Lymphocytes (%) (Auto) 15.3 L 21.0-51.0 % Monocytes (%) (Auto) 6.3 3.0-13.0 % Eosinophils (%) (Auto) 0.2 0.0-8.0 % Basophils (%) (Auto) 0.2 0.0-5.0 % Neutrophils # (Auto) 9.6 H 1.8-7.7 K/uL Lymphocytes # (Auto) 2.0 1.0-4.8 K/uL Monocytes # (Auto) 0.8 0.1-1.0 K/uL Eosinophils # (Auto) 0.03 0.00-0.70 K/uL Basophils # (Auto) 0.03 0.00-0.20 K/uL Absolute Immature Granulocyte (auto 0.68 0-1 K/uL Nucleated Red Blood Cells 0.8 H 0.0-0.19 % Prothrombin Time 11.0 9.6-11.6 SEC Prothromb Time International Ratio 1.02 0.85-1.15 Activated Partial Thromboplast Time 25.9 L 26.3-35.5 SEC Lactic Acid Level 1.8 0.8-2.5 mmol/L Magnesium Level 1.90 1.80-2.40 mg/dL Procalcitonin 0.09 0.05-0.5 ng/mL Urine Color LIGHT-YELLOW YELLOW Urine Appearance CLEAR CLEAR Urine pH 6.0 5.0-8.0 Urine Specific Sterling 1.030 1.001-1.031 Urine Protein NEGATIVE NEGATIVE mg/dL Urine Glucose (UA) NEGATIVE NEGATIVE mg/dL Urine Ketones >=80 NEGATIVE mg/dL Urine Occult Blood NEGATIVE NEGATIVE Urine Nitrate NEGATIVE NEGATIVE Urine Bilirubin NEGATIVE NEGATIVE mg/dL Urine Urobilinogen 0.2 0.2-1.0 mg/dL Urine Leukocyte Esterase NEGATIVE NEGATIVE Renae/uL Urine RBC 11-25 H 0-1 /HPF Urine WBC 2-5 H 0-1 /HPF Urine Squamous Epithelial Cells MOD 0-2 /HPF Urine Bacteria RARE None Seen /HPF Urine HCG, Qualitative NEGATIVE NEGATIVE Test 06/17/24 20:46 Range/Units Lipase 24 16-77 U/L Serum Test, Qualitative NEGATIVE NEGATIVE Current Medications Medications (Trade) Dose Ordered Sig/Toyin Route PRN Reason Start Time Stop Time Status Last Admin Dose Admin Acetaminophen (TYLenol 325MG TAB) 650 mg Q4H PRN PO MILD PAIN (1-3) 06/18/24 02:00 07/18/24 01:59 Acetaminophen (TYLenol 325MG TAB) 650 mg Q6H PRN PO TEMPERATURE GREATER THAN 101.5 06/18/24 02:00 07/18/24 01:59 Cefepime HCl (MAXipime 1 GM vial) 1 gm Q8H IVPB 06/18/24 02:00 06/28/24 01:59 06/18/24 09:42 1 GM Famotidine (Pepcid 20mg Vial) 20 mg BID IV 06/18/24 09:00 07/18/24 08:59 06/18/24 08:20 20 MG Famotidine (Pepcid 20mg Vial) 20 mg BID PRN IV NAUSEA/VOMITING 06/18/24 02:00 06/18/24 01:54 DC Magnesium Sulfate 50 ml @ 0 mls/hr PROTOCOL PRN IV low mag level 06/18/24 08:30 07/18/24 08:29 Ondansetron HCl (zoFRAN 4MG INJ) 4 mg Q4HPRN PRN IV NAUSEA/VOMITING 06/18/24 10:00 07/18/24 01:59 06/18/24 11:16 4 MG Ondansetron HCl (zoFRAN 4MG INJ) 4 mg Q6H PRN IV NAUSEA/VOMITING 06/18/24 02:00 06/18/24 09:51 DC 06/18/24 08:20 4 MG Potassium Chloride 100 ml @ 50 mls/hr AD PRN IV POTASSIUM PROTOCOL 06/18/24 08:30 07/18/24 08:29 Scopolamine HBr (Transderm-Scop) 1 patch ONCE TD 06/18/24 10:00 07/18/24 09:59 06/18/24 11:05 1 PATCH Sodium Chloride 1,000 ml @ 100 mls/hr Q10H IV 06/18/24 02:00 07/18/24 01:59 06/18/24 11:12 100 MLS/HR Vancomycin HCl (Vancomycin 500mg+NS 100ml Ivpb) 1,000 mg ONCE IV 06/18/24 10:30 06/18/24 13:30 06/18/24 11:04 1,000 MG Vancomycin HCl (Vancomycin 500mg+NS 100ml Ivpb) 1,000 mg Q12H9 IV 06/18/24 09:00 06/28/24 08:59 UNV DIAGNOSTICS / RADIOLOGY: [ ] ASSESSMENT: Postoperative ileus POA Sirs with organ dysfunction POA Dehydration POA Acute anemia POA Hyperglycemia POA Protein calorie malnutrition POA Obesity POA PLAN: We will admit patient in medical surgical floor We will keep patient nothing by mouth We will start NS @ 100 ml / hr and re evaluate We will start patient on cefepime 1 g IV Q 8 hours We will start on Famotidine 20 mg IV bid for GI prophylaxis We will replace electrolytes as needed per protocol We will add prn medication for fever,pain,nausea and vomiting We will reconcile home meds once medlist available We will seek general surgery consultation We will consult wound eval and management We will obtain fecal occult blood H&H p.r.n. bleeding We will transfuse PRBC to keep hemoglobin above seven We will request labs in am Further orders to follow depending on above results Case discussed with attending physician and came up with above treatment and plan of care. ATTESTATION BY PHYSICIAN I have seen and examined the patient. I reviewed the documentation, medical decision making, and treatment plan as noted by the mid-level provider above. I agree with the findings and plan of care. YE TATUM MD, ELIZABETH NP Jun 18, 2024 12:57
--- NOTE | 2024-06-18 14:52 | DS ---
Discharge Summary Hospital Course Summary: This 31-year-old female with a medical history concerning for a recent mommy make over with liposuction performed this Saturday in [place] has been consulted to surgery for concerns of postoperative ileus. Patient reports that for the past three days she has been unable to keep any meals down. Any meals taken resulting in nausea and vomiting. Patient reports no bowel movement over the last few days. Due to concerns patient was advised to present to hospital for further evaluation by performing surgeon. White count slightly elevated with a hemoglobin slightly trending down with 7.3. Patient's electrolytes unremarkable. During the course of stay patient received IV fluids in empiric antibiotics. Incisions clean and dry with ROHINI drain in place. No signs infection to surgical incision. General surgeon spoke to primary surgeon who performed surgery for [place] patient to follow-up with him tomorrow as scheduled. Patient tolerating diet patient has multiple bowel movements. Patient is clinically stable surgeon Dr. Tarah norris to discharge. Procedure(s): REASON: Abdominal pain ORDERING PHYSICIAN: HARDEEP ALSTON PROCEDURE: ABD PEL W - CT ABDOMEN/PELVIS W/CONTRAST CT ABDOMEN/PELVIS W/CONTRAST HISTORY: Abdominal pain TECHNIQUE: CT ABDOMEN/PELVIS W/CONTRAST Omnipaque contrast was used. Oral contrast was not given. Coronal and sagittal reformats were obtained. CT was performed with one or more of the following dose reduction techniques: Automated exposure control, adjustment of the mA and/or kV according to the patient's size, or use of the iterative reconstruction technique. Comparison: None. FINDINGS: Mild atelectatic changes are seen in the lung bases. Liver and gallbladder are within normal limits. The spleen, pancreas, and adrenal glands are within normal limits. No hydronephrosis. The urinary bladder is partially distended. Reproductive organs are grossly within normal limits for patient's age. Prominent loops of small bowel and colon with air-fluid level which may may represent ileus, enterocolitis versus early obstruction. Correlate clinically. There is no CT evidence of acute appendicitis. Subcutaneous stranding and multiple foci of air seen in the abdominal/pelvic wall as well as flank which may may represent recent postoperative changes versus gas-forming infection. Correlate clinically. Visualized aorta is normal in caliber. No acute osseous findings. IMPRESSION: 1. Prominent loops of small bowel and colon with air-fluid level which may may represent ileus, enterocolitis, less likely early obstruction. Correlate clinically. There is no CT evidence of acute appendicitis. 2. Subcutaneous stranding and multiple foci of air seen in the abdominal/pelvic wall as well as flank which may may represent recent postoperative changes versus gas-forming infection. Correlate clinically. Assessment/Plan: Discharged dx's: Postoperative ileus POA no surgical intervention patient having bowel movements. Okay to discharge per surgeon Sirs with organ dysfunction POA we will be discharged on oral antibiotics. Dehydration POA Acute anemia POA Hyperglycemia POA Protein calorie malnutrition POA Obesity POA PLAN: ADMISSION DATE: June 18, 2024 DISCHARGE DATE: June 18, 2024 DISPOSITION: Home CONDITION: Stable GRAPHIC DESIGN PROFESSOR(S): General surgeon; DR Bell FOLLOW UP APPOINTMENT(S): will follow up with Primary surgeon in [facility]. PROCEDURES: None IMAGING (S) report attached to summary : MICROBIOLOGY: report attached to summary; ACTIVITY: Encouraged to ambulate out of bed to chair continue with deep breathing exercise. HOME MEDICATIONS none profile NEW MEDICATIONS clindamycin 300 mg t.i.d. for seven days. TEACHING: Continue to ambulate as tolerated deep breathing exercise. Emergency instructions: The patient was instructed to present to the nearest Emergency Department or call 911 should their symptoms return or worsen. New Medications: Clindamycin HCl (Clindamycin HCl) 300 Mg Capsule 600 MG PO BID for 7 Days, #14 CAP Time spent arranging discharge: 31-60 minutes ATTESTATION BY PHYSICIAN I have seen and examined the patient. I reviewed the documentation, medical decision making, and treatment plan as noted by the mid-level provider above. I agree with the findings and plan of care. YE TATUM MD, ELIZABETH NP Jun 18, 2024 14:52
[2024-06-18] MEDS ORDERED: CLIN-141 PO (15:20)
[2024-06-18] MEDS ORDERED: VANCOMYCIN KIT 1 GM/250 ML IV.KIT IV SCH (22:00)
== END 2024-06-18 16:30 | disposition home or self-care (01) | DRG 872 ==
LOC: EDH 20:27 → EDHIP 20:28 → UNDOADMIN 06-18 00:43 → EDHIP 06-18 01:56 → 3BH 06-18 02:45
PROVIDERS: ADMIT Internal Medicine; ATTEND Internal Medicine
DX: A41.9 Sepsis, unspecified organism (principal); E46 Unspecified protein-calorie malnutrition; K56.7 Ileus, unspecified; K91.89 Other postprocedural complications and disorders of digestive system; D64.9 Anemia, unspecified; E66.9 Obesity, unspecified; E86.0 Dehydration; R73.9 Hyperglycemia, unspecified; Z82.49 Family history of ischemic heart disease and other diseases of the circulatory system; Z83.3 Family history of diabetes mellitus; Z68.31 Body mass index [BMI] 31.0-31.9, adult
CPT/HCPCS: 36415; 74177; 80053; 81001; 81025; 82270; 83605; 83690; 83735; 84145; 84703; 85025; 85610; 85730; 96375; 96376; 99291; G0378; J0692; J2270; J2405; J3370; J3490; J7030; Q9967